=== PATIENT | female | born 1995 | race Caucasian/White ===

== ENCOUNTER → 2022-09-08 08:53 | Outpatient (CLI) | payer OTHER, SELFPAY ==
[2022-09-08 09:36] LABS: Add Manual Diff / Slide Review NO; Basophils Absolute Auto 0 /uL (0-100); Basophils Percent Auto 0.3 % (0-2); Eosinophils Absolute Auto 100 /uL (0-450); Eosinophils Percent Auto 0.7 % (2-4); Hematocrit 35.4 % (36-46); Hemoglobin 12.5 g/dL (12.0-16.0); Lymphocytes Absolute Auto 1800 /uL (1100-4500); Lymphocytes Percent Auto 21.3 % (25-40); Mean Corpuscular HGB Conc 35.3 % (30-36); Mean Corpuscular Volume 79.4 fL (80-100); Monocytes Absolute Auto 500 /uL (0-900); Monocytes Percent Auto 5.8 % (3-14); Neutrophils Absolute Auto 6200 /uL (1500-7000); Neutrophils Percent Auto 71.9 % (50-75); Platelet Count 350 X10^3/uL (150-400); Red Blood Cell Count 4.46 X10^6/uL (4.0-5.2); Red Cell Distribution Width 13.2 % (11.6-14.8); White Blood Cell Count 8.6 X10^3/uL (4.5-11.0)
[2022-09-08 17:50] LABS: Hepatitis B Surface Antigen NEGATIVE s/c (NEGATIVE); Rubella Antibody IgG 9.6 IU/mL (>15)
[2022-09-08 18:03] LABS: HIV 1 & 2 Ab/Ag 4th Gen Combo NEGATIVE (NEGATIVE); Hep C Virus Ab w/Reflex Quant NEGATIVE s/c (NEGATIVE)
[2022-09-09 03:11] LABS: RPR Screen Non Reactive (Non Reactive)
[2022-09-09 11:45] LABS: Varicella IgG Antibody 349 index (Immune >165)
== END ==
PROVIDERS: Referring Provider Specialist; Visit Provider Specialist
DX: Z34.00 Encounter for supervision of normal first pregnancy, unspecified trimester (principal)
CPT/HCPCS: 36415; 80055; 86787; 86803; 86850; 86900; 86901; 87389

== ENCOUNTER → 2022-10-07 10:00 | Outpatient (CLI) | payer OTHER, SELFPAY ==
[2022-10-07 13:25] LABS: Urine N gonorrhoeae NOT DETECTED
[2022-10-07 13:26] LABS: Urine Chlamydia NOT DETECTED
== END ==
PROVIDERS: Visit Provider Specialist
DX: Z34.00 Encounter for supervision of normal first pregnancy, unspecified trimester (principal); Z3A.14 14 weeks gestation of pregnancy
CPT/HCPCS: 87491; 87591

== ENCOUNTER → 2022-11-03 09:23 | Outpatient (CLI) | payer OTHER, SELFPAY ==
[2022-11-03 09:47] LABS: Specimen Label NATERA
== END ==
PROVIDERS: Referring Provider Student in an Organized Health Care Education/Training Program; Visit Provider Student in an Organized Health Care Education/Training Program
DX: Z34.02 Encounter for supervision of normal first pregnancy, second trimester (principal); R31.9 Hematuria, unspecified; Z3A.18 18 weeks gestation of pregnancy
CPT/HCPCS: 87086

== ENCOUNTER → 2022-11-18 08:59 | Outpatient (CLI) | payer OTHER, SELFPAY ==
--- NOTE | 2022-11-18 08:59 | DI.US.S_ITS ---
PROCEDURE: US OB >= 14 WEEKS FETUS INDICATIONS: 20 WEEK ANATOMY SCAN OUTSIDE/PRIOR DATING DATA: Last menstrual period (LMP): 06/29/2022 LMP-based estimated date of delivery (ALIA): 04/05/2023 First dating scan (date and location): 09/08/2022 at [facility] Estimated date of delivery (ALIA) from first dating scan: 04/06/2023 The calculations are made using the clinical ALIA of 04/05/2023 TECHNIQUE: Real-time scanning was performed of the fetus, with image documentation and biometric measurements. Endovaginal scanning: Not performed COMPARISON: [facility], , OB <= 14 WEEKS FETUS, 09/08/2022, 8:27. FINDINGS: General: A single living intrauterine gestation is present. Presentation: Breech Placenta: Placental position is anterior, without previa. Amniotic fluid index: 14.1 cm, normal range is 5-24 cm. Single deepest vertical pocket is 4.5 cm. heart rate: 137 beats per minute. Maternal cervical canal: 4.3 cm long. Normal lower limit is 2.5 cm. biometrics: Biparietal diameter: 4.6 cm, 20 weeks 1 day Head circumference: 17.3 cm, 19 weeks 6 days Abdominal circumference: 15.1 cm, 20 weeks 2 days Femur length: 3.1 cm, 19 weeks 5 days Clinically estimated gestational age: 20 weeks 2 days Composite gestational age from present scan: 20 weeks 0 days Estimated weight and percentile: 328 g, 32nd percentile Anatomic survey: Neuro: Ventricles are non-dilated at less than 10 mm. Cisterna magna is normal at 3-11 mm. Cerebellum is normal in size and morphology. Nuchal skin fold: Normal at less than 6 mm between 14-21 weeks gestational age. Face: Nose and lips, facial profile are normal. Spine: No evidence for spina bifida. Heart: 4-chambered heart is present, with normal ventricular outflow tracts. Diaphragm: Diaphragm is intact. Stomach: Left-sided stomach is present. Kidneys: No hydronephrosis. Normal is less than 5 mm in 2nd trimester, less than 7 mm in 3rd trimester. Cord: 3-vessel cord has orthotopic insertion. Bladder: Normal in size. Extremities: All 4 extremities identified. IMPRESSION: 1. Single live intrauterine with appropriate interval growth. 2. anatomic survey is within normal limits. We strive to produce accurate, complete, and clear reports of imaging services. To assist us in improving patient care, this report was composed using standard report templates and voice recognition software. Therefore, it may contain abnormal punctuation, insertions and/or omissions. Occasional wrong-word or sound-alike substitutions may occur. Though we review the report and make efforts to correct it, we do recommend that the report be read carefully in proper context to recognize any text inaccuracies. Approved by: Zachary Aggarwal M.D. on 11/18/2022 at 16:13
== END ==
PROVIDERS: Referring Provider Specialist; Visit Provider Specialist
DX: Z34.02 Encounter for supervision of normal first pregnancy, second trimester (principal); Z3A.20 20 weeks gestation of pregnancy
CPT/HCPCS: 76811

== ENCOUNTER → 2022-12-01 14:19 | Outpatient (CLI) | payer OTHER, SELFPAY | PROVIDERS: Visit Provider Student in an Organized Health Care Education/Training Program | DX: Z34.02 Encounter for supervision of normal first pregnancy, second trimester (principal); Z3A.22 22 weeks gestation of pregnancy | CPT/HCPCS: 87086 ==

== ENCOUNTER → 2022-12-28 09:37 | Outpatient (CLI) | payer OTHER, SELFPAY ==
[2022-12-28 12:16] LABS: Hematocrit 33.8 % (36-46); Hemoglobin 11.8 g/dL (12.0-16.0)
[2022-12-28 12:45] LABS: GTT (PREG) 1 Hour PP 50gm Dose 117 mg/dL (76-139)
== END ==
PROVIDERS: Physician Assistant Medical; Referring Provider Student in an Organized Health Care Education/Training Program; Visit Provider Student in an Organized Health Care Education/Training Program
DX: Z34.82 Encounter for supervision of other normal pregnancy, second trimester (principal); Z3A.26 26 weeks gestation of pregnancy
CPT/HCPCS: 36415; 82950; 85014; 85018

== ENCOUNTER → 2023-02-28 10:52 | Outpatient (ROUT) | payer OTHER, SELFPAY | PROVIDERS: Visit Provider Obstetrics & Gynecology | DX: Z34.00 Encounter for supervision of normal first pregnancy, unspecified trimester (principal) | CPT/HCPCS: 87086 ==

== ENCOUNTER → 2023-03-15 09:52 | Outpatient (CLI) | payer OTHER, SELFPAY ==
[2023-03-16 12:07] LABS: Strep Grp B PCR NEG for Grp B Strep
== END ==
PROVIDERS: Visit Provider Student in an Organized Health Care Education/Training Program
DX: Z34.03 Encounter for supervision of normal first pregnancy, third trimester (principal); Z3A.37 37 weeks gestation of pregnancy
CPT/HCPCS: 87653

== ENCOUNTER 2023-03-22 22:23 | Inpatient (IN) | payer OTHER, SELFPAY ==
--- NOTE | 2023-03-22 23:10 | P.HPOB_ITS ---
OB HPI Date/Time Date of admission: 03/22/23 Date Patient Seen: 03/22/23 Time Patient Seen: 23:10 History of Present Condition Chief complaint: observation of labor ALIA Calculator Estimated Delivery Date Method Current WG Current Estimate 04/05/23 LMP (Uncertain) 38w 0d Other Estimates 04/06/23 Ultrasound #1 37w 6d Estimated Gestational Age (weeks): 38w0d : 1 Para: 0 Narrative: Pt is a 27yo at 38w0d here with leaking fluid. The pt reports feeling a gush of fluid around 9:30pm. She has continued to leak fluid since then. She denies any painful contractions or vaginal bleeding. She is feeling her baby move regularly. Her has been uncomplicated. care: good care, initiated at week # (10) and pounds weight gain (17) Dating criteria OB: LMP confirmed by 1st trimester US Ultrasounds: normal 1st trimester US and normal mid trimester US Obstetrical complications: none Medical complications OB: none Indications Operative indications ( section): breech presentation Preadmission Labs Last OB Lab Results: Blood Type O Positive 09/08/22 08:59 Antibody Screen Negative 09/08/22 08:59 Hematocrit 33.8 % (36-46) L 12/28/22 11:34 Hemoglobin 11.8 g/dL (12.0-16.0) L 12/28/22 11:34 Hepatitis B Surface Antigen Negative s/c (NEGATIVE) 09/08/22 08 :59 Hepatitis C Antibody Negative s/c (NEGATIVE) 09/08/22 08:59 Rubella Antibody 9.6 IU/mL (>15) L 09/08/22 08:59 Varicella-Zoster IgG Antibody 349 index (Immune >165) 09/08/22 08:59 Glucose 1 Hour 117 mg/dL (76-139) 12/28/22 11:34 Group B Streptococcus (PCR) Neg for grp b strep 03/15/23 09:52 -: Chlamydia screen: negative, Gonorrhea screen: negative and Urine: negative Genetic Screens: Cell-free DNA: Normal External Labs -: Urine: negative Evaluation Evaluation Baseline heart rate: 125 Variability: Moderate (11-25) monitor accelerations: Present Monitor Decelerations: Absent Contraction Frequency (minutes): 4 Uterine Contraction Intensity: Mild Status: Category l PFSH Medical History (Updated 03/22/23 @ 10:38 by Madina Yi DO) Clavicle fracture (~2009) Surgical History (Updated 09/01/22 @ 11:05 by Ruma Collins, CRYS) [place] teeth extracted (~06/2022) Family History (Updated 09/01/22 @ 11:07 by Ruma Collins, RN) Family/Other Breast cancer Social History marital status: unmarried,single number of children: 0 household members: family and friend(s) lives independently: Yes caregiver/support person: No housing: house pets and animals: Yes (2 cats) education level: high school occupational status: employed current occupational exposures/hazards: No ([employer]) special jamal needs: No travel history: recent seatbelt use: always water heater temp set < 120 deg: Yes working smoke detector in home: Yes fire extinguisher in home: Yes carbon monox detector in home: Yes firearms in home: No do you feel safe at home: Yes Smoking Status: Former smoker Tobacco: How many years used: 6 second hand exposure: Yes (sister smokes, no longer around pt) alcohol intake: former substance use type: does not use during the past year weight has: remained stable well-balanced diet: daily or most days daily servings fruits/ve-4 caffeine: Yes (aware of 200mg limit) Type(s) of exercise: other Meds Home Medications and Allergies Home Medications Medication Instructions Recorded Confirmed Type vit no.95-ferrous 1 tab PO DAILY 09/01/22 03/22/23 History fumarate 28 mg-folic acid 800 mcg tablet ( Multivitamins) Allergies Allergy/AdvReac Type Severity Reaction Status Date / Time No Known Drug Allergies Allergy Unverified 03/22/23 10:00 OB Exam Resp Effort & Inspection: normal respiratory effort Auscultation: clear to auscultation bilaterally Cardio Rate: regular rate Rhythm: regular rhythm Heart Sounds: S1 normal, S2 normal and no murmurs GI Inspection: non-distended Palpation: Yes soft and No tender Other: breech presentation on bedside u/s Assessment and Plan Assessment and Plan Assessment and Plan narrative: 27yo at 38w0d here with PROM at home, breech presentation confirmed. GBS negative, Rh positive. Due to breech presentation, will proceed with primary c- section. Discussed risks including but not limited to bleeding/hemorrhage, infection, injury to other organs such as bowel/bladder, injury to fetus. The pt agrees to blood transfusion if medically necessary. Consent was signed and placed in the chart. The pt will received 2g Ancef prior to surgery. SCDs to be placed.
--- NOTE | 2023-03-22 23:16 | PM.PREOP ---
Pre-operative Note Interval Note History & Physical reviewed/Exam performed by Physician: Yes Changes to H&P: No
[2023-03-22 23:20] LABS: Add Manual Diff / Slide Review NO; Basophils Absolute Auto 0 /uL (0-100); Basophils Percent Auto 0.2 % (0-2); Eosinophils Absolute Auto 100 /uL (0-450); Eosinophils Percent Auto 0.7 % (2-4); Hematocrit 34.5 % (36-46); Hemoglobin 11.9 g/dL (12.0-16.0); Lymphocytes Absolute Auto 2500 /uL (1100-4500); Lymphocytes Percent Auto 20.4 % (25-40); Mean Corpuscular HGB Conc 34.5 % (30-36); Mean Corpuscular Hemoglobin 27.5 PG (26-34); Mean Corpuscular Volume 79.8 fL (80-100); Monocytes Absolute Auto 900 /uL (0-900); Monocytes Percent Auto 6.9 % (3-14); Neutrophils Absolute Auto 8900 /uL (1500-7000); Neutrophils Percent Auto 71.8 % (50-75); Platelet Count 345 X10^3/uL (150-400); Red Blood Cell Count 4.32 X10^6/uL (4.0-5.2); Red Cell Distribution Width 13.7 % (11.6-14.8); White Blood Cell Count 12.4 X10^3/uL (4.5-11.0)
[2023-03-22 23:29] VITALS: BP 128/79
[2023-03-22] MEDS: CEFAZOLIN 2 GM/100 ML PREMIX 100 ML IV (23:55)
--- NOTE | 2023-03-23 00:27 | SUR.OPER ---
Supine on Padded OR bed, head on pillow, safety belt at thigh, arms secured on padded arm boards at <90 degrees abduction. Bump under right buttock. Legs uncrossed with pillow under knees, gel pad to heels, tape over blanket to lower legs.
--- NOTE | 2023-03-23 01:05 | PM.OBCS.1 ---
Operative Date/Time/Diagnoses Date of procedure: 03/23/23 Time of procedure: 00:00 Pre-op diagnosis: 38w0d gestation Rh positive GBS negative Breech presentation Post-op diagnosis: same Procedure & Clinicians Procedure: Primary Same procedure as scheduled: Yes Indications: Breech presentation Surgeon: Leticia Pablo Click Yes if Unassisted: Yes Anesthesia Type: Spinal Operative Notes Findings: Normal uterus, ovaries, and tubes Closure Type: primary Specimen(s): cord blood Intraoperative meds administered: Ketorolac and Pitocin Applied: Catheter Estimated Blood Loss (mL): 600 Procedure in detail: OPERATIVE COURSE: The patient was taken to the operating room where spinal anesthesia was placed. She was then prepared and draped in the normal sterile fashion in the dorsal supine position with a leftward tilt. Anesthesia was tested and found to be adequate. A Pfannensteil skin incision was then made with the scalpel and carried through to the underlying layer of fascia with the scalpel. The fascia was incised in the midline and the incision extended laterally with the Hyman scissors. The superior aspect of the fascial incision was then grasped with Ellen clamps, elevated, and the underlying rectus muscles dissected off bluntly. Attention was then turned to the inferior aspect of the incision which, in a similar fashion, was grasped, tented up with Ellen clamps, and the rectus muscle dissected off bluntly and sharply with Hyman scissors. The rectus muscles were then in the midline, and the peritoneum was identified and entered bluntly. The peritoneal incision was then extended with good visualization of the bladder. Retraction was provided by the surgical scrub technologist. The bladder blade was then inserted and the vesicouterine peritoneum identified, grasped with pick-ups and entered sharply with the Metzenbaum scissors. The incision was then extended laterally and the bladder flap created digitally. The bladder blade was then reinserted and the lower uterine segment incised in a transverse fashion with the scalpel. The uterine incision was then extended superolaterally by pulling superolaterally on both sides. The bladder blade was removed and the infants legs easily were delivered. Gentle traction with a wet towel was applied to deliver the torso. The anterior arm was then delivered, and the rotated 180 degrees to deliver the other arm. The head was then easily produced. Nuchal cord x1 was reduced. The nose and mouth were suctioned with bulb suction and the cord was clamped and cut after it stopped pulsating. The was handed off to the waiting nursing staff. Cord blood was collected for Rh status. The placenta was then delivered with gentle cord traction. The uterus was then exteriorized and cleared of all clots and debris. The uterine incision was repaired with O-Vicryl in a running, locked fashion. A second layer of the same suture was used for imbrication. A [id number] with 2-O Chromic was completed on the left side of the incision for excellent hemostasis. The uterus was returned to the abdomen. The gutters were cleared of all clots. Hysterotomy was investigated and found to be hemostatic. The peritoneum was closed with 3-O Vicryl. The fascia was reapproximated with O Vicryl in a running fashion. The subcutaneous tissue was reapproximated with 3-O Vicryl. The skin was closed with 4-O Vicryl. The surgical scrub technologist helped with retraction during closures. SPONGE AND NEEDLE COUNTS: Correct x3. DRESSING: Aquacel ANTICOAGULATION: SCDs applied prior to Surgery Preop antibiotics given (see MAR). The patient was taken to recovery room having tolerated procedure well. [place] Baby 1: Infant Gender: Male Presentation: breech Details: footling Placental Delivery Description: Spontaneous Cord Vessel Description: 3 Vessels and Nuchal Cord score (1 min): 9 score (5 min): 9 weight: 7 lb 13.575 oz Post-operative Condition: stable Disposition: PACU Aftercare: routine postop
[2023-03-23 01:06] VITALS: BP 114/56; PULSE 98; RESP 18; TEMP 37; O2SAT 100
[2023-03-23 01:09] VITALS: BP 122/93; PULSE 102; RESP 14; O2SAT 100
[2023-03-23 01:14] VITALS: BP 102/76; PULSE 96; RESP 15; O2SAT 99
[2023-03-23 01:21] VITALS: BP 110/58; PULSE 98; RESP 12; TEMP 36.8; O2SAT 100
--- NOTE | 2023-03-23 01:33 | SUR.PHASEI ---
Pt transferred to to with spouse and Marisol RN in bed. Kylah pad dry.
[2023-03-23 06:41] LABS: Add Manual Diff / Slide Review NO; Basophils Absolute Auto 100 /uL (0-100); Basophils Percent Auto 0.4 % (0-2); Eosinophils Absolute Auto 100 /uL (0-450); Eosinophils Percent Auto 0.4 % (2-4); Hematocrit 29.3 % (36-46); Hemoglobin 10.3 g/dL (12.0-16.0); Lymphocytes Absolute Auto 3000 /uL (1100-4500); Lymphocytes Percent Auto 20.2 % (25-40); Mean Corpuscular HGB Conc 35.1 % (30-36); Mean Corpuscular Hemoglobin 28.3 PG (26-34); Mean Corpuscular Volume 80.6 fL (80-100); Monocytes Absolute Auto 1000 /uL (0-900); Monocytes Percent Auto 6.3 % (3-14); Neutrophils Absolute Auto 11000 /uL (1500-7000); Neutrophils Percent Auto 72.7 % (50-75); Platelet Count 273 X10^3/uL (150-400); Red Blood Cell Count 3.64 X10^6/uL (4.0-5.2); White Blood Cell Count 15.1 X10^3/uL (4.5-11.0)
[2023-03-23] MEDS: KETOROLAC 30 MG/ML VIAL IV ×3 (07:35→20:18)
--- NOTE | 2023-03-23 13:23 | P.PNOB_ITS ---
Subjective - OB Subjective Patient comments: no complaints [place] baby status: doing well [place] feeding status: exclusively breast feeding Narrative: 27yo [id number] s/p PLTCS for breech presentation at 38+0wks due to PROM. Today she reports feeling well, pain is well controlled. She hasn't ambulated yet, and still has her figueroa catheter in place. Is with assistance. Date Patient Seen: 03/23/23 Time Patient Seen: 13:25 Exam Vital Signs (past 8 hours): Oxygen Delivery Method Room Air Narrative Exam Narrative: vitals reviewed in OBIX, within normal parameters Const General: cooperative, healthy appearing and No acute distress Resp Effort & Inspection: normal respiratory effort and able to speak in complete sentences GI Other: soft, appropriately tender Other: fundus firm at U-2 Skin Other: incision covered with Aquacel dressing with minimal strikethrough Psych Mood: congruent mood Affect: normal affect Objective Labs 03/23/23 06:28 Labs: Laboratory Results - last 24 hr 03/22/23 03/23/23 23:08 06:28 WBC 12.4 H 15.1 H RBC 4.32 3.64 L Hgb 11.9 L 10.3 L Hct 34.5 L 29.3 L MCV 79.8 L 80.6 MCH 27.5 28.3 MCHC 34.5 35.1 RDW 13.7 14.0 Plt Count 345 273 Neut % (Auto) 71.8 72.7 Lymph % (Auto) 20.4 L 20.2 L [place] % (Auto) 6.9 6.3 Eos % (Auto) 0.7 L 0.4 L Baso % (Auto) 0.2 0.4 Neut # (Auto) 8900 H 34596 H Lymph # (Auto) 2500 3000 [place] # (Auto) 900 1000 H Eos # (Auto) 100 100 Baso # (Auto) 0 100 Blood Type O Positive Antibody Screen Negative Assessment & Plan Assessment and Plan (1) Delivery by section for breech presentation: Status: Acute (2) Premature rupture of membranes: Status: Acute (3) Acute postoperative anemia due to expected blood loss: Status: Acute (4) Obesity affecting in third trimester: Status: Acute (5) Rubella non-immune status, antepartum: Status: Acute Plan day: 1 plan OB: routine postop care Comments: 27yo [id number] POD#1 s/p PLTCS for breech, doing well in the period. -encouraged ambulation today -d/c figueroa as soon as possible -continue routine care -anticipate d/c home tomorrow morning Time Spent With Patient Time: Total time spent is greater than 50% in coordination of care (as documented) at patient's floor/unit and/or counseling patient: Time with patient: less than 15 minutes
[2023-03-24] MEDS: IBUPROFEN 600 MG TABLET PO ×3 (02:18→16:20)
--- NOTE | 2023-03-24 08:00 | P.DS_ITS ---
Discharge Providers Provider Date of admission: 03/22/23 22:23 Discharge Date: 03/24/23 Primary care physician: Pat CARRENO Provider Consults: 03/23/23 02:17 Consult to E Commerce Manager Routine Comment: Discharge provider: Madina Yi DO Summary Hospital Course Date Patient Seen: 03/24/23 Time Patient Seen: 08:00 Diagnoses: Term gestation at 38+0wks Premature rupture of membranes Breech presentation Obesity Rubella nonimmune Hospital Course: Hospital course: 27yo [id number] admitted at 38+0wks for PROM with breech presentation. She underwent a primary low transverse section, which was uncomplicated. Her delivery was uncomplicated, and productive of a viable male infant. Her course was uncomplicated. On post-op day #2, she was ambulating, tolerating regular diet, voiding spontaneously with minimal lochia. Her pain was well controlled with oral medications, thus she was discharged to home on post-op day #2. She was offered the MMR vaccine prior to discharge due to her rubella nonimmune status. Peripartum Data Delivery Method: Section Procedures: External monitoring Spinal anesthesia Primary section complications: none Discharge Diagnosis (1) Delivery by section for breech presentation: Status: Acute (2) Premature rupture of membranes: Status: Acute (3) Acute postoperative anemia due to expected blood loss: Status: Acute (4) Obesity affecting in third trimester: Status: Acute (5) Rubella non-immune status, antepartum: Status: Acute Status at Discharge Cognitive/behavioral status at discharge: oriented Functional status at discharge: independent ambulation Overall status at discharge: patient is progressing back to baseline Time Spent with Patient Time attestation: Total time spent providing and/or coordinating discharge services: Time spent: Less than 30 minutes Objective Labs 03/23/23 06:28 Exam Vital Signs (past 8 hours): Oxygen Delivery Method Room Air Narrative Exam Narrative: vitals reviewed in OBIX, within normal parameters Const General: cooperative, healthy appearing, comfortable and No acute distress Resp Effort & Inspection: normal respiratory effort GI Inspection: normal to inspection Other: fundus firm and nontender at U-2 Skin General: no rashes or lesions noted Other: incision covered with Aquacel dressing, with minimal strikethrough Neuro General: patient alert and patient awake Extrem General: normal to inspection and no calf tenderness Psych Mood: congruent mood Affect: normal affect Discharge Plan Discharge Plan Patient Disposition: Home Provider Discharge Comment: Take ibuprofen 600mg every 6hrs and tylenol 650mg every 6hrs for pain. Use oxycodone 5mg every 4hrs as needed for severe pain. Avoid lifting greater than 20lbs for at least [address] anything in the vagina for 6 weeks. Take oral iron supplementation for 2 months due to your anemia. Discharge orders & Medications Prescriptions: New oxycodone 5 mg Tablet 5 mg PO Q4H PRN (Reason: Pain, Moderate (4-6)) Qty: 10 0RF Continued PNV cmb#95-ferrous fumarate-FA [ Multivitamins] 28 mg iron- 800 mcg tablet 1 tab PO DAILY Follow up/Referrals: Madina Yi DO [Physician] - Diet/Activity/Treatments Diet: Diet as Tolerated Activity: As tolerated. Skin/Wound/Dressing Care Report to your healthcare provider any signs of infection, such as:: chills, fever, increased pain, unusual drainage and unusual redness Dressing: Aquacel dressing will be removed in 1 week. In the interim, you may shower normally. Visit Report/Discharge Packet Instructions: DI for , DI for Prescription Opioid Use Stand Alone Forms: Patient Portal/API, Stroke Signs & Symptoms Discharge Data Primary Care Provider: Pat Hanks
[2023-03-24] MEDS: DOCUSATE 100 MG CAPSULE PO (09:10)
[2023-03-24] MEDS: PRENATAL VIT,CALC/IRON/FOLIC 1 TABLET 1 TAB PO (09:11)
[2023-03-24] MEDS: MEASLES,MUMPS,RUBELLA VACC/PF 0.5 ML VIAL SUBCUT (18:53)
[2023-03-24 19:23] VITALS: BP 140/77; PULSE 82; RESP 12; TEMP 37.3
== END 2023-03-24 19:07 | disposition home or self-care (01) | DRG 787 ==
PROVIDERS: Admitting Provider Family Medicine; Referring Provider Family Medicine; Visit Provider Family Medicine
PROC: 10D00Z1 Extraction of Products of Conception, Low, Open Approach (ICD-10-PCS; CPT 59514; principal; 2023-03-23)
DX: O42.92 Full-term premature rupture of membranes, unspecified as to length of time between rupture and onset of labor (principal); D62 Acute posthemorrhagic anemia; O99.214 Obesity complicating childbirth; O90.81 Anemia of the puerperium; O32.8XX0 Maternal care for other malpresentation of fetus, not applicable or unspecified; Z3A.38 38 weeks gestation of pregnancy; Z37.0 Single live birth; Z78.9 Other specified health status; Z23 Encounter for immunization
CPT/HCPCS: 36415; 59050; 59510; 59514; 85025; 86850; 86900; 86901; G0379; J0690; J1885; J2274; J2405

== ENCOUNTER → 2024-06-17 16:18 | Outpatient (CLI) | payer OTHER, SELFPAY ==
--- NOTE | 2024-06-17 16:20 | DI.US.S_ITS ---
PROCEDURE: US OB <= 14 WEEKS FETUS INDICATIONS: dating and viability OUTSIDE/PRIOR DATING DATA: Last menstrual period (LMP): 04/25/2024. LMP-based estimated date of delivery (ALIA): 01/30/2025. First dating scan (date and location): Not applicable. Estimated date of delivery (ALIA) from first dating scan: 01/31/2025. TECHNIQUE: Real-time scanning was performed of the fetus and maternal pelvic organs, with image documentation. Endovaginal scanning was also performed to better visualize the fetus and maternal ovaries. COMPARISON: [facility], , OB <= 14 WEEKS FETUS, 09/08/2022, 8:27. FINDINGS: Embryo: [place]-rump length measures 1.3 centimeter, correspond to 7 weeks 3 days Heart rate: 149 beats per minute Maternal organs: Ovaries unremarkable. IMPRESSION: Single living intrauterine with estimated gestational age of 7 weeks 3 days. We strive to produce accurate, complete, and clear reports of imaging services. To assist us in improving patient care, this report was composed using standard report templates and voice recognition software. Therefore, it may contain abnormal punctuation, insertions and/or omissions. Occasional wrong-word or sound-alike substitutions may occur. Though we review the report and make efforts to correct it, we do recommend that the report be read carefully in proper context to recognize any text inaccuracies. Dictated by: Bradley Gutiérrez M.D. on 06/17/2024 at 20:31 Approved by: Bradley Gutiérrez M.D. on 06/17/2024 at 20:35
== END ==
PROVIDERS: Referring Provider Family Medicine; Visit Provider Family Medicine
DX: Z34.81 Encounter for supervision of other normal pregnancy, first trimester (principal); Z3A.01 Less than 8 weeks gestation of pregnancy
CPT/HCPCS: 76801

== ENCOUNTER → 2024-07-22 13:38 | Outpatient (CLI) | payer OTHER, SELFPAY ==
[2024-07-22 14:21] LABS: Appearance Urine UA SL CLOUDY; Bilirubin Urine UA NEGATIVE (NEGATIVE); Color Urine UA YELLOW; Glucose Urine UA NEGATIVE (Negative); Ketones Urine UA TRACE (NEGATIVE); Leukocyte Esterase Urine UA NEGATIVE (NEGATIVE); Nitrite Urine UA NEGATIVE (Negative); Occult Blood Urine UA 3+ (Negative); Protein Urine UA TRACE (Negative); Specific Gravity Urine UA >=1.030 (1.000-1.035); Urobilinogen Urine UA 0.2 E.U./dL (0.2)
[2024-07-22 14:28] LABS: pH Urine UA 5.5 (4.5-8.0)
[2024-07-22 14:30] LABS: RBC Urine 5-10/HPF (0-5/HPF); Urine Volume 10mL (spun); WBC Urine None Seen (0-5/HPF)
[2024-07-22 14:31] LABS: Amorphous Sediment Urine 3+; Bacteria Urine Occasional (0-1); Squamous Epithelial Cell Urine 0-1 /HPF (0-5/HPF)
[2024-07-22 14:42] LABS: Natera Collection Specimen Collected
[2024-07-22 15:11] LABS: Add Manual Diff / Slide Review NO; Basophils Absolute Auto 0 /uL (0-100); Basophils Percent Auto 0.2 % (0-2); Eosinophils Absolute Auto 100 /uL (0-450); Eosinophils Percent Auto 1.4 % (2-4); Hematocrit 36.5 % (36-46); Hemoglobin 12.8 g/dL (12.0-16.0); Lymphocytes Absolute Auto 1900 /uL (1100-4500); Mean Corpuscular HGB Conc 34.9 % (30-36); Mean Corpuscular Hemoglobin 27.9 PG (26-34); Mean Corpuscular Volume 79.7 fL (80-100); Monocytes Absolute Auto 400 /uL (0-900); Monocytes Percent Auto 3.8 % (3-14); Neutrophils Absolute Auto 8100 /uL (1500-7000); Neutrophils Percent Auto 76.6 % (50-75); Platelet Count 350 X10^3/uL (150-400); Red Blood Cell Count 4.58 X10^6/uL (4.0-5.2); Red Cell Distribution Width 13.6 % (11.6-14.8); White Blood Cell Count 10.6 X10^3/uL (4.5-11.0)
[2024-07-22 20:23] LABS: Hepatitis B Surface Antigen NEGATIVE s/c (NEGATIVE); Rubella Antibody IgG 38.4 IU/mL (>15)
[2024-07-22 20:39] LABS: HIV 1 & 2 Ab/Ag 4th Gen Combo NEGATIVE (NEGATIVE); Hep C Virus Ab w/Reflex Quant NEGATIVE s/c (NEGATIVE)
== END ==
PROVIDERS: Referring Provider Family Medicine; Visit Provider Family Medicine
DX: Z34.81 Encounter for supervision of other normal pregnancy, first trimester (principal)
CPT/HCPCS: 36415; 80055; 81003; 81015; 86787; 86803; 86850; 86900; 86901; 87086; 87389

== ENCOUNTER → 2024-09-11 07:53 | Outpatient (CLI) | payer OTHER, SELFPAY ==
--- NOTE | 2024-09-11 07:53 | DI.US.S_ITS ---
PROCEDURE: US OB >= 14 WEEKS FETUS INDICATIONS: anatomy scan OUTSIDE/PRIOR DATING DATA: Last menstrual period (LMP): April 25, 2024. LMP-based estimated date of delivery (ALIA): January 30, 2025. First dating scan (date and location): June 17, 2024. Estimated date of delivery (ALIA) from first dating scan: January 31, 2025. TECHNIQUE: Real-time scanning was performed of the fetus, with image documentation and biometric measurements. Endovaginal scanning: Not performed COMPARISON: [facility], OB >= 14 WEEKS FETUS, 11/18/2022, 9:06. FINDINGS: General: A single living intrauterine gestation is present. Presentation: Variable. Placenta: Placental position is posterior , without previa. Amniotic fluid index: 12.1 cm, normal range is 5-24 cm. Single deepest vertical pocket is 4.3 cm. heart rate: 145 beats per minute. Maternal cervical canal: 4.0 cm long. Normal lower limit is 2.5 cm. biometrics: Biparietal diameter: 4.6 cm, 20 weeks and 0 days Head circumference: 17.2 cm, 19 weeks and 5 days Abdominal circumference: 16.3 cm, 21 weeks and 1 day Femur length: 3.6 cm, 21 weeks and 3 days Clinically estimated gestational age: 19 weeks and 6 days Composite gestational age from present scan: 20 weeks and 4 days Estimated weight and percentile: 397 g (97th percentile) Anatomic survey: Neuro: Ventricles are non-dilated at less than 10 mm. Cisterna magna is normal at 3-11 mm. Cerebellum is normal in size and morphology. Nuchal skin fold: Normal at less than 6 mm between 14-21 weeks gestational age. Face: Nose and lips, facial profile are normal. Spine: No evidence for spina bifida. Heart: Four-chamber heart is visualized. The right ventricular outflow tract and left ventricular outflow tract are not well visualized on this exam. Diaphragm: Diaphragm is intact. Stomach: Left-sided stomach is present. Kidneys: No hydronephrosis. Normal is less than 5 mm in 2nd trimester, less than 7 mm in 3rd trimester. Cord: 3-vessel cord has orthotopic insertion. Bladder: Normal in size. Extremities: All 4 extremities identified. IMPRESSION: Single living intrauterine gestation with estimated sonographic gestational age of approximately 20 weeks and 4 days versus approximately 19 weeks and 6 days by LMP. Estimated weight of 397 g which correlates with the 97th percentile for gestational age. The right and left ventricular outflow tracts are not well visualized on this examination. Follow-up imaging recommended. Otherwise, unremarkable routine second-trimester anatomy screening survey. We strive to produce accurate, complete, and clear reports of imaging services. To assist us in improving patient care, this report was composed using standard report templates and voice recognition software. Therefore, it may contain abnormal punctuation, insertions and/or omissions. Occasional wrong-word or sound-alike substitutions may occur. Though we review the report and make efforts to correct it, we do recommend that the report be read carefully in proper context to recognize any text inaccuracies. Dictated by: Bob Alvarenga M.D. on 09/11/2024 at 13:06 Approved by: Bob Alvarenga M.D. on 09/11/2024 at 13:10
== END ==
PROVIDERS: Referring Provider Family Medicine; Visit Provider Family Medicine
DX: Z34.82 Encounter for supervision of other normal pregnancy, second trimester (principal); Z3A.19 19 weeks gestation of pregnancy
CPT/HCPCS: 76811

== ENCOUNTER → 2024-10-11 13:14 | Outpatient (CLI) | payer OTHER, SELFPAY ==
[2024-10-11 15:07] LABS: Add Manual Diff / Slide Review NO; Hematocrit 33.2 % (36-46); Hemoglobin 12.0 g/dL (12.0-16.0); Lymphocytes Absolute Auto 2100 /uL (1100-4500); Mean Corpuscular HGB Conc 36.1 % (30-36); Mean Corpuscular Hemoglobin 29.3 PG (26-34); Mean Corpuscular Volume 81.2 fL (80-100); Platelet Count 359 X10^3/uL (150-400)
[2024-10-11 15:19] LABS: GTT (PREG) 1 Hour PP 50gm Dose 86 mg/dL (76-139)
[2024-10-11 16:19] LABS: Anisocytosis 1+
== END ==
PROVIDERS: Referring Provider Family Medicine; Visit Provider Family Medicine
DX: Z34.80 Encounter for supervision of other normal pregnancy, unspecified trimester (principal)
CPT/HCPCS: 36415; 82950; 85025

== ENCOUNTER → 2024-11-11 16:46 | Outpatient (CLI) | payer OTHER, SELFPAY | PROVIDERS: Visit Provider Family Medicine | DX: R30.9 Painful micturition, unspecified (principal) | CPT/HCPCS: 87086 ==

== ENCOUNTER → 2024-12-06 16:22 | Outpatient (CLI) | payer OTHER, SELFPAY ==
--- NOTE | 2024-12-06 16:23 | DI.US.S_ITS ---
PROCEDURE: US OB FOLLOW UP INDICATIONS: measuring large for dates TECHNIQUE: Real-time scanning was performed of the fetus, with image documentation and biometric measurements. Calculations are based on the working ALIA of 01/30/2025. COMPARISON: [facility], OB FOLLOW UP, 10/02/2024, 15:25. FINDINGS: General: A single living intrauterine gestation is present. Presentation: Vertex. Placenta: Placental position is posterior , without previa. Amniotic fluid index: 8.7 cm, normal range is 5-24 cm. Single deepest vertical pocket is 3.7 cm. heart rate: 123 beats per minute. Maternal cervical canal: 2.6 cm long. Normal lower limit is 2.5 cm. biometrics: Biparietal diameter: 8.5 cm, 34 week 2 day Head circumference: 31.5 cm, 35 week 2 day Abdominal circumference: 30.5 cm, 34 week 3 day Femur length: 6.4 cm, 33 week 2 day Clinically estimated gestational age: 32 week 1 day Composite gestational age from present scan: 34 week 2 day Estimated weight and percentile: 2366 g, 94 percentile IMPRESSION: Single live intrauterine consistent with 34 week 2 day gestation by ultrasound and 32 week 1 day gestation by dates EFW 94th percentile by given dates Approved by: Gadiel Murdock M.D. on 12/06/2024 at 17:09
== END ==
PROVIDERS: PCP Family Medicine; Referring Provider Family Medicine; Visit Provider Family Medicine
DX: Z34.83 Encounter for supervision of other normal pregnancy, third trimester (principal); Z3A.34 34 weeks gestation of pregnancy
CPT/HCPCS: 76816

== ENCOUNTER 2025-01-18 22:41 | Inpatient (IN) | payer OTHER, SELFPAY ==
[2025-01-19] VITALS (7 sets, daily range): BP systolic 111–124; BP diastolic 65–90; PULSE 70–98; RESP 16–25; TEMP 36.2–36.8; O2SAT 98
--- NOTE | 2025-01-19 03:01 | PM.OBHP.IH.1 ---
OB HPI Date/Time Date of admission: 01/19/25 Date Patient Seen: 01/19/25 Time Patient Seen: 03:01 History of Present Condition Chief complaint: NST ALIA Calculator Estimated Delivery Date Method Current WG Current Estimate 01/30/25 LMP (Certain) 38w 3d : 2 Para: 1 Narrative: Patient presents for painful contractions over the last 8 hours. They have increased in frequency and intensity. She was using her maite to track them at home. She does not think her water is broken. She has not having any vaginal bleeding. She has history of a prior section, and desires a repeat . She previously had considered having a tubal ligation, but she is not certain about proceeding with permanent sterilization so she elects to forego this additional procedure at this time. Her last was for breech presentation. She thinks this baby might be a little bigger than her last. care: good care Dating criteria OB: LMP confirmed by 1st trimester US (7w3d US) Obstetrical complications: none Medical complications OB: none Indications Other reason(s) for admission: Labor, History of prior section Preadmission Labs Last OB Lab Results: Blood Type O Positive 07/22/24, 13:42 Antibody Screen Negative 07/22/24, 13:42 Hct, (36-46) 33.2 % L 10/11/24, 14:25 Hgb, (12.0-16.0) 12.0 g/dL 10/11/24, 14:25 Hep Bs Antigen, (NEGATIVE) Negative s/c 07/22/24, 13:42 Hepatitis C Antibody, (NEGATIVE) Negative s/c 07/22/24, 13:42 Rubella Antibody, (>15) 38.4 IU/mL 07/22/24, 13:42 VZV IgG Antibody, (Non Reactive) Reactive 07/22/24, 13:42 Glucose 1 Hr 50 gm, (76-139) 86 mg/dL 10/11/24, 14:22 Group B Strep (PCR) Neg for grp b strep 03/15/23, 09:52 Prior (ies) Past Pregnancies Del. Date GA/Weeks Labor Lgth Wt Sex Route Outcome Anesthesia Place Delv Breastfeed Preg Comp Name 03/23/23 38 7 lb 14 oz Male live - full term spinal IH 13 months [place] Delivery Date: 03/23/23 Last Updated by: Ruma Collins RN breech Evaluation Evaluation Baseline heart rate: 145 Variability: Moderate (6-25) monitor accelerations: Present Monitor Decelerations: Early Contraction Frequency (minutes): 3 Uterine Contraction Intensity: Strong/Firm Category of Tracing: Reactive Status: Category l Dilation (cm): 3 Effacement (%): 80 station: -2 Comments: Cervix dilated fr 2-->3 cm during triage observation [facility] Medical History Delivery by section for breech presentation Acute postoperative anemia due to expected blood loss Asymptomatic bacteriuria during Clavicle fracture (~2009) Surgical History H/O section [place] teeth extracted (~06/2022) Family History Aunt Breast cancer Social History marital status: number of children: 1 household members: spouse and children lives independently: Yes caregiver/support person: No housing: house pets and animals: Yes (2 cats, dog) education level: high school occupational status: employed current occupational exposures/hazards: No ([employer]) special jamal needs: No travel history: recent (domestic only) seatbelt use: always water heater temp set < 120 deg: Yes working smoke detector in home: Yes fire extinguisher in home: Yes carbon monox detector in home: Yes firearms in home: No do you feel safe at home: Yes Tobacco: How many years used: 6 second hand exposure: No alcohol intake: former (occasional single beverage when not ) substance use type: does not use during the past year weight has: other (son only 13 months at conception, not back to pre-baby weight) well-balanced diet: daily or most days daily servings fruits/ve-4 caffeine: Yes (single cup coffee in AM) Type(s) of exercise: walking Meds Home Medications and Allergies Home Medications ?Medication ?Instructions ?Recorded ?Confirmed ?Type vit no.95-ferrous 1 tab PO DAILY 09/01/22 01/17/25 History fumarate 28 mg-folic acid 800 mcg tablet ( Multivitamins) Allergies Allergy/AdvReac Type Severity Reaction Status Date / Time No Known Drug Allergies Allergy Verified 01/17/25 15:04 Review of Systems Review of Systems ROS: Yes All systems reviewed with the patient and are negative except as otherwise documented OB Exam Vital signs Blood Pressure: 124/79 Pulse Rate: 98 Respiratory Rate: 16 Temperature: 97.2 F HENMT Head: normocephalic and atraumatic Resp Effort & Inspection: normal respiratory effort, no respiratory distress and other (Breathing through contractions) Cardio Rate: regular rate Rhythm: regular rhythm Extremities Lower extremity: Yes normal to inspection; No edema GI Inspection: other (Gravid) External Female Exam: Yes normal external appearance Presentation: vertex Amniotic Fluid: no fluid Objective Labs 01/19/25 00:01 Assessment and Plan Assessment and Plan Assessment and Plan narrative: IUP at 38w3d, history of prior section, with ongoing painful contractions and documented cervical change during observation. - Proceed with repeat section - Consent obtained - OR team notified. Reassuring status Previously considering permanent sterilization -declines today. Dr. Quiles notified, plans to attend for delivery. Debora Varela DO Time-Based Coding :: [TOTAL MINUTES] spent with patient and on the chart (including review of chart, obtaining history, exam, reviewing outside data, placing orders, documenting exam and treatment plan, and counseling patient) on [DATE].
[2025-01-19] MEDS: LACTATED RINGERS 1,000 ML 999 ML IV (03:13)
[2025-01-19] MEDS: CITRIC ACID/SODIUM CITRATE 15 ML SOLUTION 30 ML PO (03:13)
[2025-01-19 03:28] LABS: Add Manual Diff / Slide Review NO; Hematocrit 32.3 % (36-46); Hemoglobin 10.9 g/dL (12.0-16.0); Lymphocytes Absolute Auto 2300 /uL (1100-4500); Mean Corpuscular HGB Conc 33.8 % (30-36); Mean Corpuscular Hemoglobin 26.0 PG (26-34); Mean Corpuscular Volume 76.9 fL (80-100); Platelet Count 365 X10^3/uL (150-400)
--- NOTE | 2025-01-19 04:56 | SUR.OPER ---
Supine on padded OR bed, head on pillow, arms secured on padded arm boards at <90 degrees abduction, Bump to right hip, legs uncrossed, safety belt at thigh, tape over blanket over lower legs.
[2025-01-19] MEDS: ACETAMINOPHEN IV 1,000 MG/100 ML VIAL 400 MG IV (05:00)
--- NOTE | 2025-01-19 05:26 | RT ---
RT attended , received baby and started CPAP while stimulating baby. Good color and tone and baby started to cry. Spo2 sofia to 90% rapidly while CPAP w/ 21% Fio2 given. Orally suctioned w/ bulb and catheter improving B/S. yellowish / green secretions obtained. Baby stabilized and going back to mother on room air.
--- NOTE | 2025-01-19 05:42 | P.OP_ITS ---
Operative Date/Time/Diagnoses Date of procedure: 01/19/25 Time of procedure: 04:50 Pre-op diagnosis: previous , CHRISTO Post-op diagnosis: same Procedure & Clinicians Procedure: Repeat Low Transverse Same procedure(s) as scheduled: Yes Indications: previous CS Surgeon: Suri Quiles Click Yes if Unassisted: No Audio Visual Specialist: Debora Varela Reason for Audio Visual Specialist: Audio Visual Specialist required for the safe, effective, and timely completion of this surgery. The administrative support assistant was necessary to retract upon entry into the abdomen and uterus. Assisted with delivery of the infant with fundal pressure. Assisted with closure with retraction, holding suture, and closure of the contralateral fascia. Anesthesia Type: Spinal Operative Notes Findings: Normal uterus, ovaries, and tubes Closure Type: primary Specimen(s): cord blood Intraoperative meds administered: Pitocin Applied: Catheter Estimated Blood Loss (mL): 450 Blood products transfused: none Procedure in detail: OPERATIVE COURSE: The patient was taken to the operating room where spinal anesthesia was placed. She was then prepared and draped in the normal sterile fashion in the dorsal supine position with a leftward tilt. Anesthesia was tested and found to be adequate. A Pfannensteil skin incision was then made with the scalpel and carried through to the underlying layer of fascia with the scalpel. The fascia was incised in the midline and the incision extended laterally bluntly. The superior aspect of the fascial incision was then grasped with Ellen clamps, elevated with the help of the surgical instrument mechanic, and the underlying rectus muscles dissected off bluntly and sharply where needed. The rectus muscles were then in the midline, and the peritoneum was identified and entered bluntly. The peritoneal incision was then extended with good visualization of the bladder. Retraction was provided by the surgical instrument mechanic. The bladder blade was then inserted and the vesicouterine peritoneum identified, grasped with pick-ups and entered sharply with the Metzenbaum scissors. The incision was then extended laterally and the bladder flap created digitally. The bladder blade was then reinserted and the lower uterine segment incised in a transverse fashion with the scalpel, with the surgical instrument mechanic providing suction. The uterine incision was then extended superolaterally by pulling superolaterally on both sides. Membranes were ruptured and fluid was thick mec. The bladder blade was removed the infant's head was flexed out of MARCELLE position and delivered atraumatically, with fundal pressure by the surgical instrument mechanic. The nose and mouth were suctioned with bulb suction and the cord was clamped and cut after a 60 second delay. The was handed off to the waiting nursing staff. Cord blood was collected. Time of delivery was 04:57. APGARS were 8 and 9 at one and five minutes respectively. The placenta was then delivered with gentle cord traction. The uterus was then exteriorized and cleared of all clots and debris. The uterine incision was repaired with 0 Vicryl in a running, locked fashion. A second layer of the same suture was used to obtain excellent hemostasis. The uterus was returned to the abdomen. The gutters were cleared of all clots. Hysterotomy was investigated and found to be hemostatic. The fascia was reapproximated with 0 Vicryl in a running fashion. The subcutaneous tissue was reapproximated with 3-0 vicryl. The skin was closed with 4-0 monocryl. The surgical instrument mechanic helped with retraction during closures. SPONGE AND NEEDLE COUNTS: Correct x3. DRESSING: Aquacel ANTICOAGULATION: SCDs applied prior to Surgery Preop antibiotics given (see MAR). The patient was taken to recovery room having tolerated procedure well. Complications: none Baby 1: Delivery Date: 01/19/25 Delivery Time: 04:57 Infant Gender: Female Presentation: vertex Position: Right Occiput Anterior Placental Delivery Description: Expressed Cord Vessel Description: 3 Vessels score (1 min): 8 score (5 min): 9 Post-operative Condition: stable Disposition: PACU Aftercare: routine postop
[2025-01-19] MEDS: KETOROLAC 30 MG/ML VIAL IV ×2 (12:05→17:59)
[2025-01-19] MEDS: ACETAMINOPHEN 325 MG TABLET 650 MG PO ×2 (12:07→17:59)
[2025-01-20] MEDS: KETOROLAC 30 MG/ML VIAL IV (00:08)
[2025-01-20] MEDS: ACETAMINOPHEN 325 MG TABLET 650 MG PO ×3 (00:09→12:06)
[2025-01-20] MEDS: IBUPROFEN 600 MG TABLET PO ×2 (06:05→12:06)
[2025-01-20 06:54] LABS: Add Manual Diff / Slide Review NO; Hematocrit 27.2 % (36-46); Hemoglobin 9.3 g/dL (12.0-16.0); Lymphocytes Absolute Auto 3300 /uL (1100-4500); Mean Corpuscular HGB Conc 34.4 % (30-36); Mean Corpuscular Hemoglobin 26.5 PG (26-34); Mean Corpuscular Volume 77.2 fL (80-100); Platelet Count 294 X10^3/uL (150-400)
--- NOTE | 2025-01-20 08:03 | P.DS_ITS ---
Discharge Providers Provider Date of admission: 01/18/25 22:41 Discharge Date: 01/20/25 Primary care physician: Pat CARRENO Provider Consults: 01/19/25 06:09 Consult to Associate Professor Of Management Routine Comment: Discharge provider: Suri Quiles MD Summary Hospital Course Hospital Course: 29 yo who presented at 38w3d with painful contractions and cervical change with plans for repeat . CS was uncomplicated aside from thick mec stained fluid. Time of was 04:57. APGARS were 8/9. course uncomplicated. She is voiding and passing gas and is ambulating without difficulty has been uncomplicated aside from macrosomia on US Peripartum Data Infant Delivery Method: Section complications: none Status at Discharge Cognitive/behavioral status at discharge: oriented Time Spent with Patient Time attestation: Total time spent providing and/or coordinating discharge services: Objective Labs 01/20/25 06:32 Labs: Laboratory Results - last 24 hr 01/20/25 06:32 WBC 14.0 H RBC 3.52 L Hgb 9.3 L Hct 27.2 L MCV 77.2 L MCH 26.5 MCHC 34.4 RDW 13.9 Plt Count 294 Neut % (Auto) 70.4 Lymph % (Auto) 23.6 L [place] % (Auto) 5.5 Eos % (Auto) 0.3 L Baso % (Auto) 0.2 Neut # (Auto) 9900 H Lymph # (Auto) 3300 [place] # (Auto) 800 Eos # (Auto) 0 Baso # (Auto) 0 Exam Vital Signs (past 8 hours): Oxygen Delivery Method Room Air Narrative Exam Narrative: Gen: well appearing, NAD Skin: no rashes or pallor Abd: appropriate post-op tenderness, fundus firm below Umbilicus. Dressing with scant drainage MSK: scant edema Discharge Plan Discharge Plan Patient Disposition: Home Discharge orders & Medications Prescriptions: New oxycodone 5 mg Tablet 5 mg PO Q4H PRN (Reason: Pain, Moderate (4-6)) 10 Days Qty: 15 0RF Continued PNV no.95-ferrous fumarate-FA [ Multivitamins] 28 mg iron- 800 mcg tablet 1 tab PO DAILY Visit Report/Discharge Packet Stand Alone Forms: Patient Portal/API, Stroke Signs & Symptoms Discharge Data Primary Care Provider: ProviderPat
[2025-01-20] MEDS: DOCUSATE 100 MG CAPSULE PO (09:30)
[2025-01-20] MEDS: PRENATAL VIT,CALC/IRON/FOLIC 1 TABLET 1 TAB PO (09:30)
[2025-01-20 12:51] VITALS: BP 111/58; PULSE 61; RESP 14; TEMP 36.7
== END 2025-01-20 12:30 | disposition home or self-care (01) | DRG 788 ==
PROVIDERS: Admitting Provider Student in an Organized Health Care Education/Training Program; Referring Provider Family Medicine; Visit Provider Student in an Organized Health Care Education/Training Program
PROC: (CPT 59514; principal; 2025-01-19 05:00)
DX: O75.82 Onset (spontaneous) of labor after 37 completed weeks of gestation but before 39 completed weeks gestation, with delivery by (planned) cesarean section (principal); Z3A.38 38 weeks gestation of pregnancy; Z37.0 Single live birth
CPT/HCPCS: 36415; 59025; 59050; 85025; 86850; 86900; 86901; 96360; G0379; J0131; J0689; J1100; J1885; J2274; J2405; J7120